=== PATIENT | female | born 1955 | race Hispanic/Latino ===

== ENCOUNTER 2022-10-29 10:45 | Day surgery (SDC) | payer OTHER ==
[2022-10-29] MEDS ORDERED: Zoledronic Acid/Mannitol/Water 5 MG/100 ML INFUS.BOT IV ONE (11:00)
[2022-10-29 13:32] VITALS: BP 166/58; TEMP 97.1; O2SAT 100; BMI 25.4
== END 2022-10-29 12:15 | disposition home or self-care (01) ==
LOC: DS 10:45
PROVIDERS: ATTEND Internal Medicine
DX: M81.0 Age-related osteoporosis without current pathological fracture (principal); R13.10 Dysphagia, unspecified
CPT/HCPCS: 96365; J3489